=== PATIENT | female | born 1985 | race Caucasian/White ===

== ENCOUNTER → 2017-02-15 | Outpatient (CLI) | payer BC ==
[~2017-02-15] MED LIST: BCPILLS PO; BUPR-79 PO; FEXO1TAB49 PO; LEVO200T6 PO; LEVO25TA5 PO; MULT-506 PO; PANT40TA PO; SYNTHROID PO
[2017-02-15 17:53] LABS: BASO % 0.2 %; BASO ABS # 0.01 K/uL (0-0.2); COMPLETE YES; EOS % 2.6 %; HEMATOCRIT 38.2 % (37-47); IG% 0.2 %; LYMPH % 35.8 %; LYMPH ABS # 2.17 K/uL (1.2-3.4); MEAN CELL VOLUME 85.7 fL (80-100); MEAN CORPUSCULAR HEMOGLOBIN 29.6 pg (25-34); MEAN CORPUSCULAR HGB CONC 34.6 g/dl (32-36); MEAN PLATELET VOLUME 9.4 fL (7.4-10.4); MONO % 6.8 %; NEUT % 54.4 %; PLATELET COUNT 311 K/uL (130-400); RED BLOOD COUNT 4.46 M/uL (4.2-5.4); WHITE BLOOD COUNT 6.06 K/uL (4.8-10.8)
[2017-02-15 18:28] LABS: BLOOD UREA NITROGEN 11 mg/dl (7-18); BUN/CREATININE RATIO 14.8 (10-20); CALCIUM 8.2 mg/dl (8.5-10.1); CARBON DIOXIDE 27 mmol/L (21-32); CHLORIDE 105 mmol/L (98-107); CREATININE 0.77 mg/dl (0.60-1.20); GLUCOSE 82 mg/dl (70-99); POTASSIUM 3.7 mmol/L (3.5-5.1); SODIUM 141 mmol/L (136-145)
[2017-02-15 18:31] LABS: ALB/GLOB RATIO 1.3 (0.9-2); ALKALINE PHOSPHATASE 64 U/L (45-117); ALT/SGPT 32 U/L (12-78); AST/SGOT 16 U/L (15-37)
== END | disposition home or self-care (01) ==
LOC: C.LAB1850 16:33
PROVIDERS: ATTEND Internal Medicine Endocrinology, Diabetes & Metabolism
DX: Z91.09 Other allergy status, other than to drugs and biological substances (principal); E89.0 Postprocedural hypothyroidism; C73 Malignant neoplasm of thyroid gland

== ENCOUNTER → 2017-04-26 | Outpatient (CLI) | payer BC | END | disposition home or self-care (01) | LOC: C.LAB1850 16:38 | PROVIDERS: ATTEND Obstetrics & Gynecology | DX: O20.0 Threatened abortion (principal) ==

== ENCOUNTER → 2017-05-09 | Day surgery (SDC) | payer BC ==
[2017-05-08 08:48] VITALS: BMI 34.0
[~2017-05-09] VITALS: Ht 175.3 cm; Wt 106.8 kg
[~2017-05-09] MED LIST changes: +ACETAMINOPHEN 325 MG TAB PO PRN; +ACETAMINOPHEN 650 MG SUPP PR PRN; +ATROPINE SULFATE 0.1 MG/ML 5ML SYR IV PRN; -BCPILLS PO; +DEXAMETHASONE SOD INJ 4 MG/ML VIAL ONE; +DOXYCYCLINE HYCLATE 100 MG CAP PO SCH; +EpHEDrine SULFATE INJ 50 MG/ML AMP IV PRN; +FENTANYL CITRATE INJ 50 MCG/1 ML 2 ML VIAL IV PRN; +FENTANYL CITRATE INJ 50 MCG/1 ML 2 ML VIAL ONE; +GENERAL ORDER PROBLEM SCH; +IBUPROFEN 600 MG TAB PO PRN; +KETOROLAC TROMETHAMINE 30 MG/ML VIAL IV. PRN; +KETOROLAC TROMETHAMINE 30 MG/ML VIAL ONE; +LACTATED RINGER'S 1000ML 1,000 ML IV SCH; +LIDOCAINE 2% 20 MG/ML 5ML SYR ONE; +METOCLOPRAMIDE HCL INJ 5 MG/ML 2 ML VIAL ONE; +MIDAZOLAM HCL 1 MG/ML 2ML VIAL ONE; +MoRPHine SULFATE 2 MG/ML CARP IV PRN; +MoRPHine SULFATE 4 MG/ML 1 ML CARP\\VIAL IV PRN; +ONDANSETRON INJ 2 MG/ML 2 ML VIAL IV PRN; +ONDANSETRON INJ 2 MG/ML 2 ML VIAL ONE; +OXYCODONE/ACETAMINOPHEN 5-325 TAB PO PRN; +PROPOFOL IV EMULSION 10 MG/ML 20 ML VIAL IV ONE; +SILVER NITR/POTASSIUM NITRATE APPLICATOR ONE; -SYNTHROID PO
[2017-05-09 11:40] VITALS: BP 143/75; PULSE 84; TEMP 36.8; O2SAT 98; Ht 175.3 cm; Wt 106.8 kg
[2017-05-09 12:00] LABS: BASO % 0.2 %; BASO ABS # 0.01 K/uL (0-0.2); EOS % 1.5 %; HEMATOCRIT 39.3 % (37-47); IG% 0.4 %; LYMPH % 28.5 %; LYMPH ABS # 1.57 K/uL (1.2-3.4); MEAN CELL VOLUME 86.4 fL (80-100); MEAN CORPUSCULAR HEMOGLOBIN 29.7 pg (25-34); MONO % 8.5 %; NEUT % 60.9 %; PLATELET COUNT 289 K/uL (130-400); RED BLOOD COUNT 4.55 M/uL (4.2-5.4); WHITE BLOOD COUNT 5.51 K/uL (4.8-10.8)
[2017-05-09 12:22] LABS: COMPLETE YES; MEAN CORPUSCULAR HGB CONC 34.4 g/dl (32-36)
--- NOTE | 2017-05-09 12:41 | History & Physical Bridge Note ---
H&P Re-Evaluation Bridge Note: I have examined the patient, reviewed the History & Physical and in the interval since the performance of the History & Physical I have noted the following changes of clinical significance: No changes noted
--- NOTE | 2017-05-09 13:50 | [facility] Post Operative Brief Note ---
Immediate Operative Summary Operative Date May 09, 2017. Pre-Operative Diagnosis Missed Post-Operative Diagnosis Missed Procedure(s) Performed Dilation of Cervix, Evacuation and Curettage (Removal of Products of Conception), Exam of Uterus under Anesthesia Surgeon Dr. Devine Financial Services Representative Surgeon(s) none Estimated Blood Loss 100 ml Findings uterus about 8 weeks size, sounded to 10cm, pocs removed Specimens A. Products of Conception Drains none Anesthesia lma Complication(s) None Disposition Recovery Room / PACU
--- NOTE | 2017-05-09 13:51 | Discharge Instructions ---
Discharge Instructions Date of Service May 09, 2017. Visit Reason for Visit: Missed Discharge Discharge Diagnosis / Problem: s/p D&E Discharge Goals Goal(s): Specific goals Activity Recommendations Activity Limitations: per Instructions/Follow-up section Anesthesia . Post Anesthesia Instructions: If you have had General Anesthesia or IV Sedation: * Do not drive today. * Resume driving when surgeon permits. * Do not make important decisions or sign legal documents today. * Call surgeon for: 1. Temperature elevations greater than 101 degrees F. 2. Uncontrollable pain. 3. Excessive bleeding. 4. Persistent nausea and vomiting. 5. Medication intolerance (nausea, vomiting or rash). * For nausea and vomiting use only clear liquids such as: tea, soda, bouillon until nausea subsides, then gradually increase diet as tolerated. * If you have any concerns or questions, call your surgeon's office. If physician is unavailable and it is an emergency, call 911 or go to the nearest emergency room. . Instructions / Follow-Up Instructions / Follow-Up ACTIVITY RECOMMENDATIONS: * Avoid tampons, douching, hot tubs, pools, and intercourse until bleeding has stopped. * May shower as usual. * No strenuous activity for 24-48 hours. After 24-48 hours, you may do anything you feel like doing (driving and sports are okay). SPECIAL CARE INSTRUCTIONS: Special Diet: * Mild nausea may occur in the immediate post-operative period. * Take clear liquids such as tea, cola or bouillon until all nausea has subsided; you may then resume your normal diet. Special Care: * Light bleeding and vaginal spotting can last from a few days to 3-4 weeks. Call your doctor if bleeding becomes heavier than the heaviest part of your period. * Check your temperature twice a day for one week. If it goes above 100.4 degrees Fahrenheit (38.0 Celsius), notify your doctor. * Call your doctor's office for an appointment for 2-4 weeks after your surgery. FOLLOW-UP VISIT: Call your doctor's office for an appointment for 2-4 weeks after your surgery. Diet Recommendations Recommended Home Diet: no limitations, resume previous diet Procedures Procedures Performed: Dilation of Cervix, Evacuation and Curettage (Removal of Products of Conception), Exam of Uterus under Anesthesia Pending Studies Studies pending at discharge: no Medical Emergencies . Who to Call and When: Medical Emergencies: If at any time you feel your situation is an emergency, please call 911 immediately. . Non-Emergent Contact Non-Emergency issues call your: Direct Marketing Manager . . "Provider Documentation" section prepared by Ceci Devine. .
--- NOTE | 2017-05-09 13:52 | Medical Student: [facility] ---
Immediate Operative Summary Operative Date May 09, 2017. Pre-Operative Diagnosis Missed Post-Operative Diagnosis Same Procedure(s) Performed Dilatation and Evacuation Surgeon Sybil Assurance Senior Manager Surgeon(s) None Estimated Blood Loss 100 cc Findings Uterus was 8-10 weeks in size. Products of conception removed. Fluids (cc crystalloids) 700 cc Specimens Products of conception. Drains None Anesthesia LMA Complication(s) None Disposition Recovery Room / PACU
[2017-05-09 14:35] VITALS: BP 142/71; PULSE 80; TEMP 37; O2SAT 99
--- NOTE | 2017-05-09 15:03 | OPERATIVE REPORT ---
DATE OF OPERATION: 05/09/2017 PREOPERATIVE DIAGNOSIS: Missed . POSTOPERATIVE DIAGNOSIS: Same. PROCEDURE: D&E. SURGEON: Dr. Devine. ANESTHESIA: General per laryngeal mask. ESTIMATED BLOOD LOSS: 100 mL. FLUIDS: 700 mL of IV fluid. URINE OUTPUT: 250 mL of clear yellow urine drained from the bladder at the beginning of the procedure. INDICATIONS: The patient is a 1, para 0 with a missed AB measuring 6-week size. FINDINGS: Uterus 8-10 weeks size, sounded to 10 cm. Products of conception removed. COMPLICATIONS: None. DRAINS: None. DISPOSITION: To recovery room in stable condition. PROCEDURE IN DETAIL: The patient was taken to the operating room where she was identified verbally and by bracelet. She was placed in dorsal supine position where general anesthesia was induced without difficulty. She was then placed in dorsal lithotomy position in candy-cane stirrups and prepped and draped in normal sterile fashion. Timeout was held, identifying correct patient, procedure and positioning as well as preoperative antibiotic being given. Bladder was drained of urine and exam under anesthesia revealed the above noted findings. A speculum was placed in the vagina. The anterior lip of the cervix was grasped with a single tooth tenaculum. The uterus sounded to 10 cm and was dilated to #33 Hegar dilator. An 8 mm suction curette was placed into the uterus with removal of products of conception. This happened x3 and then curettage was done in 365 degrees until a cat's cry was felt and heard in all quadrants. The suction curet was then replaced into the uterus without return of further products of conception and the procedure was terminated. The tenaculum was removed from the cervix. Some bleeding from the tenaculum site was attended to with pressure and silver nitrate until hemostasis was assured. All sponge, lap and needle counts were correct x2. The patient tolerated the procedure well and was taken to the recovery room in stable condition. I attest to the content of the Intraoperative Record and any orders documented therein. Any exception s are noted below.
[2017-05-09 15:05] VITALS: BP 145/77; PULSE 83; O2SAT 100
--- NOTE | 2017-05-09 15:07 | Anesthesiology Progress Note ---
Anesthesia Post Op Note Date & Time May 09, 2017 at 15:08 Vital Signs Pain Intensity: 0 Vital Signs Past 12 Hours Date Time Temp Pulse Resp B/P (MAP) Pulse Ox O2 Delivery O2 Flow Rate FiO2 05/09/17 14:35 37 80 16 142/71 99 Room Air 05/09/17 14:30 36.4 84 20 144/80 98 Room Air 05/09/17 14:20 85 20 137/82 98 Room Air 05/09/17 14:10 85 20 138/87 100 Oxymask 3 05/09/17 14:00 88 16 151/83 98 Oxymask 10 05/09/17 13:50 36.5 70 16 124/72 98 Oxymask 10 05/09/17 11:40 36.8 84 18 143/75 (97) 98 Room Air Notes Mental Status: alert / awake / arousable, participated in evaluation Pt Amnestic to Procedure: Yes Nausea / Vomiting: adequately controlled Pain: adequately controlled Airway Patency, RR, SpO2: stable & adequate BP & HR: stable & adequate Hydration State: stable & adequate Anesthetic Complications: no major complications apparent
[2017-05-09 15:35] VITALS: BP 148/81; PULSE 82; TEMP 36.9; O2SAT 100
== END | disposition home or self-care (01) ==
LOC: C.ACU 11:18
PROVIDERS: ATTEND Obstetrics & Gynecology
DX: O02.1 Missed abortion (principal); F32.9 Major depressive disorder, single episode, unspecified; Z98.890 Other specified postprocedural states; Z90.89 Acquired absence of other organs; Z98.818 Other dental procedure status; E66.9 Obesity, unspecified; Z68.34 Body mass index [BMI] 34.0-34.9, adult; Z80.52 Family history of malignant neoplasm of bladder; Z82.49 Family history of ischemic heart disease and other diseases of the circulatory system; Z84.89 Family history of other specified conditions

== ENCOUNTER → 2017-07-27 | Outpatient (CLI) | payer BC ==
[~2017-07-27] MED LIST changes: -ACETAMINOPHEN 325 MG TAB PO PRN; -ACETAMINOPHEN 650 MG SUPP PR PRN; -ATROPINE SULFATE 0.1 MG/ML 5ML SYR IV PRN; -DEXAMETHASONE SOD INJ 4 MG/ML VIAL ONE; -DOXYCYCLINE HYCLATE 100 MG CAP PO SCH; -EpHEDrine SULFATE INJ 50 MG/ML AMP IV PRN; -FENTANYL CITRATE INJ 50 MCG/1 ML 2 ML VIAL IV PRN; -FENTANYL CITRATE INJ 50 MCG/1 ML 2 ML VIAL ONE; -GENERAL ORDER PROBLEM SCH; -IBUPROFEN 600 MG TAB PO PRN; -KETOROLAC TROMETHAMINE 30 MG/ML VIAL IV. PRN; -KETOROLAC TROMETHAMINE 30 MG/ML VIAL ONE; -LACTATED RINGER'S 1000ML 1,000 ML IV SCH; -LIDOCAINE 2% 20 MG/ML 5ML SYR ONE; -METOCLOPRAMIDE HCL INJ 5 MG/ML 2 ML VIAL ONE; -MIDAZOLAM HCL 1 MG/ML 2ML VIAL ONE; -MoRPHine SULFATE 2 MG/ML CARP IV PRN; -MoRPHine SULFATE 4 MG/ML 1 ML CARP\\VIAL IV PRN; -ONDANSETRON INJ 2 MG/ML 2 ML VIAL IV PRN; -ONDANSETRON INJ 2 MG/ML 2 ML VIAL ONE; -OXYCODONE/ACETAMINOPHEN 5-325 TAB PO PRN; -PROPOFOL IV EMULSION 10 MG/ML 20 ML VIAL IV ONE; -SILVER NITR/POTASSIUM NITRATE APPLICATOR ONE
[2017-07-27 14:22] LABS: URINE APPEARANCE CLEAR (CLEAR); URINE BILIRUBIN NEG (NEG); URINE COLOR DK YELLOW; URINE NITRITE NEG (NEG); URINE SPECIFIC GRAVITY 1.029 (1.000-1.030); UROBILINOGEN NEG (NEG)
[2017-07-27 14:32] LABS: MANUAL MICROSCOPIC REQUIRED? NO; REVIEW REQ? NO
== END | disposition home or self-care (01) ==
LOC: C.LABSPEC 13:39
PROVIDERS: ATTEND Obstetrics & Gynecology
DX: O99.281 Endocrine, nutritional and metabolic diseases complicating pregnancy, first trimester (principal)

== ENCOUNTER → 2017-08-01 | Outpatient (CLI) | payer BC ==
[2017-08-04 00:33] LABS: CHLAMYDIA TRACH RNA*** NOT DETECTED (NOT DETECTED); GC (NEIS GONORRHOEAE)RNA** NOT DETECTED (NOT DETECTED)
== END | disposition home or self-care (01) ==
LOC: C.LABSPEC 14:24
PROVIDERS: ATTEND Obstetrics & Gynecology
DX: Z34.01 Encounter for supervision of normal first pregnancy, first trimester (principal)